=== PATIENT | female | born 1955 | race Caucasian/White ===

== ENCOUNTER → 2017-04-09 | Outpatient (CLI) | payer MEDICARE ==
--- NOTE | 2017-04-09 13:15 | US ---
EXAMINATION TYPE: US abdomen limited DATE OF EXAM: 04/09/2017 COMPARISON: NONE CLINICAL HISTORY: R10.11 Right upper quadrant abd pain. Patient stated has had 4 days of epigastric p ain, diarrhea, bloated feeling and gastroesophageal reflux. EXAM MEASUREMENTS: Liver Length: 11.9 cm Gallbladder Wall: 0.2 cm CBD: 0.3 cm Right Kidney: 10.2 x 5.0 x 4.6 cm Exam is technically limited by overlying bowel gas. Pancreas: hyperechoic Liver: fatty liver Gallbladder: wnl Evidence for sonographic Moise's sign: No CBD: wnl Right Kidney: wnl Exam noted suboptimal per technologist due to shadowing from overlying bowel gas. Visualized pancreas is felt within normal limits. IVC is seen near hepatic dome. Visualized liver is heterogeneously hyp erechoic suggesting fatty infiltration, no intrahepatic ductal dilatation is seen. Evaluation for foc al masses is slightly suboptimal due to the heterogeneity. Gallbladder is seen without shadowing mobi le gallstones. IMPRESSION: No gallstones or ultrasound evidence for acute cholecystitis.
== END | disposition home or self-care (01) ==
LOC: RADUSWWP 12:01
PROVIDERS: ATTEND Internal Medicine
DX: R10.11 Right upper quadrant pain (principal)
CPT/HCPCS: 76705

== ENCOUNTER → 2019-02-16 | Outpatient (CLI) | payer MEDICARE ==
--- NOTE | 2019-02-17 10:02 | MM ---
Reason for exam: screening (asymptomatic). Physical Findings: A clinical breast exam by your physician is recommended on an annual basis and results should be correlated with mammographic findings. MG 3D Screening Mammo W/Cad Bilateral CC and MLO view(s) were taken. XCCL view(s) were taken of the right breast. No prior studies available for comparison. There are scattered fibroglandular densities. There is no discrete abnormality. ASSESSMENT: Negative, BI-RAD 1 RECOMMENDATION: Routine screening mammogram of both breasts in 1 year.
== END | disposition home or self-care (01) ==
LOC: RADMAMWWP 14:35
PROVIDERS: ATTEND Internal Medicine
DX: Z12.31 Encounter for screening mammogram for malignant neoplasm of breast (principal)
CPT/HCPCS: 77063; 77067